=== PATIENT | male | born 1980 | race Caucasian/White ===

== ENCOUNTER 2019-06-29 02:16 | Emergency (ER) | payer OTHER ==
[~2019-06-29] VITALS: Ht 190.5 cm; Wt 117.9 kg
[2019-06-29] MEDS ORDERED: AZITHROMYCIN250 MG (02:31)
[2019-06-29] MEDS ORDERED: BENZONATATE200 MG PO (02:32)
[2019-06-29] MEDS ORDERED: MUCINEX600 MG (02:33)
[2019-06-29] MEDS ORDERED: LEVAQUIN750 MG PO (03:21)
== END 2019-06-29 03:37 | disposition home or self-care (01) ==
LOC: ED 02:16
DX: J18.9 Pneumonia, unspecified organism (principal); Z87.891 Personal history of nicotine dependence; Z88.5 Allergy status to narcotic agent; Z88.8 Allergy status to other drugs, medicaments and biological substances; Z79.899 Other long term (current) drug therapy
CPT/HCPCS: 71046; 99284-25